=== PATIENT | male | born 1990 | race Caucasian/White ===

== ENCOUNTER 2018-09-30 22:20 | Emergency (ER) | payer MEDICARE, MEDICAID ==
[~2018-09-30] VITALS: Ht 170.2 cm; Wt 65.0 kg
[2018-09-30 23:46] VITALS: BP 105/67
== END 2018-10-01 00:25 | disposition home or self-care (01) ==
LOC: ED 23:06
DX: R07.89 Other chest pain (principal); Z72.9 Problem related to lifestyle, unspecified; F10.120 Alcohol abuse with intoxication, uncomplicated; F12.10 Cannabis abuse, uncomplicated; Y90.0 Blood alcohol level of less than 20 mg/100 ml; F17.200 Nicotine dependence, unspecified, uncomplicated; A80.9 Acute poliomyelitis, unspecified
CPT/HCPCS: 36415; 71046; 80053; 80307; 81003; 84484; 85025; 93005; 99284